=== PATIENT | female | born 1975 | race American Indian/Alaskan Native ===

== ENCOUNTER 2017-05-23 20:18 | Observation (INO) | payer OTHER ==
[2017-05-23 20:22] VITALS: BMI 47.3
--- NOTE | 2017-05-23 20:22 | ED PDOC ---
Arrival/HPI <Jacobo Desir - Last Filed: 05/23/17 21:32> - General Historian: Patient <Kit Florian - Last Filed: 05/26/17 13:56> - General Time Seen by Provider: 05/23/17 20:19 - History of Present Illness Narrative History of Present Illness (Text): 05/23/17 20:21 41 y/o, female, pmh including chronic lumbar radiculapathy, nkda, c/o rt. sided flank/chest pain that has been and off for the past 4 days with no fall or trauma. Pt. was seen at another ER which she bring the copy of the CT abdomen and pelvis result show no acute findings except for hepatic steatosis, discharged home with flexeril, stated that she still has pain. Pt. has no nausea or vomiting, no fever or chills, no chest pain or shortness of breath, no night sweat, no rash, no urinary symptoms, no other medical or psychological complaints. (Kit Florian) Past Medical History - Provider Review Nursing Documentation Reviewed: Yes - Infectious Disease Hx of Infectious Diseases: None - Tetanus Immunization Tetanus Immunization: Unknown - Past Medical History Past Medical History: No Previous - Cardiac Hx Cardiac Disorders: Yes Hx Hypertension: Yes - Pulmonary Hx Respiratory Disorders: Yes Hx Pneumonia: Yes (10-24-15) - Neurological Hx Neurological Disorder: No - HEENT Hx HEENT Disorder: No - Renal Hx Renal Disorder: No - Endocrine/Metabolic Hx Endocrine Disorders: Yes Hx Diabetes Mellitus Type 2: Yes - Hematological/Oncological Hx Blood Disorders: No - Integumentary Hx Dermatological Disorder: No - Musculoskeletal/Rheumatological Hx Musculoskeletal Disorders: Yes Hx Back Pain: Yes Hx Falls: No - Gastrointestinal Hx Gastrointestinal Disorders: No - Genitourinary/Gynecological Hx Genitourinary Disorders: Yes ( X2) Other/Comment: PCOS - Psychiatric Hx Depression: No Hx Emotional Abuse: No Hx Physical Abuse: No Hx Substance Use: No - Surgical History Hx Tonsillectomy: Yes Other/Comment: "ear nose and throat" - Anesthesia Hx Anesthesia: Yes Hx Anesthesia Reactions: No - Suicidal Assessment Feels Threatened In Home Enviroment: No <Kit Florian - Last Filed: 05/26/17 13:56> Family/Social History - Physician Review Nursing Documentation Reviewed: Yes Family/Social History: Unknown Family HX Smoking Status: Current Some Days Smoker Hx Alcohol Use: Yes Hx Substance Use: No Hx Substance Use Treatment: No <FlorianKit Jackeline - Last Filed: 05/26/17 13:56> Allergies/Home Meds <Jacobo Desir - Last Filed: 05/23/17 21:32> <Kit Florian Jackeline - Last Filed: 05/26/17 13:56> Allergies/Adverse Reactions: Allergies No Known Allergies Allergy (Verified 06/22/16 21:40) Home Medications: Home Meds Medication Instructions Recorded Confirmed Lisinopril/Hydrochlorothiazide 20 mg PO DAILY 11/19/15 05/23/17 [Lisinopril-Hctz 20-25 mg Tab] Hydrochlorothiazide 25 mg PO DAILY 05/11/16 05/23/17 Review of Systems - Review of Systems Constitutional: absent: Fatigue, Fevers Eyes: absent: Vision Changes ENT: absent: Hearing Changes Respiratory: absent: SOB, Cough Cardiovascular: absent: Chest Pain Gastrointestinal: Abdominal Pain. absent: Nausea, Vomiting Musculoskeletal: Back Pain (rt. flank). absent: Arthralgias, Neck Pain, Joint Swelling, Myalgias Skin: absent: Rash, Pruritis Neurological: absent: Headache, Dizziness <Kit Florian Jackeline - Last Filed: 05/26/17 13:56> Physical Exam Vital Signs Reviewed: Yes Temperature: Afebrile Blood Pressure: Normal Pulse: Regular Respiratory Rate: Normal Appearance: Positive for: Well-Appearing, Non-Toxic Pain Distress: Severe Mental Status: Positive for: Alert and Oriented X 3 - Systems Exam Head: Present: Atraumatic, Normocephalic Pupils: Present: PERRL Extroacular Muscles: Present: EOMI Conjunctiva: Present: Normal Mouth: Present: Moist Mucous Membranes Neck: Present: Normal Range of Motion Respiratory/Chest: Present: Clear to Auscultation, Good Air Exchange. No: Respiratory Distress, Accessory Muscle Use Cardiovascular: Present: Regular Rate and Rhythm, Normal S1, S2. No: Murmurs Abdomen: Present: Tenderness (epigastric/RUQ), Normal Bowel Sounds. No: Distention, Peritoneal Signs, Rebound, Guarding Back: Present: Normal Inspection. No: CVA Tenderness, Midline Tenderness Upper Extremity: Present: Normal Inspection. No: Cyanosis, Edema Lower Extremity: Present: Normal Inspection. No: Edema Neurological: Present: GCS=15, Speech Normal, Motor Func Grossly Intact, Gait Normal, Memory Normal Skin: Present: Warm, Dry, Normal Color. No: Rashes Psychiatric: Present: Alert, Oriented x 3, Normal Insight, Normal Concentration <Kit Florian - Last Filed: 05/26/17 13:56> Vital Signs Temp Pulse Resp BP Pulse Ox 05/24/17 01:32 67 19 126/79 100 05/24/17 00:00 68 19 135/82 99 05/23/17 22:19 72 18 144/76 99 05/23/17 20:19 97.9 F 68 18 141/86 98 Medical Decision Making <Jacobo Desir - Last Filed: 05/23/17 21:32> - Lab Interpretations I have reviewed the lab results: Yes Interpretation: No clinic. lab abnormalty - RAD Interpretation Medical Collections Specialist: Radiologist <Kit Florian - Last Filed: 05/26/17 13:56> ED Course and Treatment: 05/23/17 20:34 -labs/ua -gallbladder sonogram -cxr -IVF/pepcid/valium/toradol -observe and reassess 05/24/17 00:25 -Labs are non-significant except mild elevation of d-dimer. -UA show no UTI -Urine hcg negative -Gallbladder sonogram show no acute findings. -Chest xray show edema vs. nonspecific findings -CTA: There is no central PE. Patchy consolidations are visualized within both lower lobes as well as the right middle lobe and left upper lobe. These findings are consistent with atelectatic change, although infiltrate cannot be excluded. Patchy nonspecific groundglass density is also identified diffusely within the lungs. -Pt. feels limited relief and still has pain -IV rocephine and azithromycin ordered. -Discussed with Dr. Desir and suggest observation over night. 05/24/17 00:37 -I discussed the case/labs/radiology results with Dr. Angel, agreed that the patient need observatio over night due to the pain is still there with bilateral consolidation findings. (Kit Florian) - Lab Interpretations Microbiology Results: Microbiology Results 05/24/17 00:40 Blood-Venous Blood Culture - Preliminary NO GROWTH AFTER 48 HOURS 05/23/17 20:20 Blood-Venous Blood Culture - Preliminary NO GROWTH AFTER 48 HOURS Lab Results: 05/23/17 21:05 05/23/17 21:05 Lab Results 05/23/17 21:05: D-Dimer, Quantitative 0.52 H 05/23/17 21:05: Sodium 140, Potassium 3.5 L, Chloride 101, Carbon Dioxide 29, Anion Gap 14, BUN 17, Creatinine 0.9, Est GFR ( Amer) > 60, Est GFR (Non- Af Amer) > 60, Random Glucose 114 H, Calcium 9.4, Total Bilirubin 0.3, AST 27, ALT 28, Alkaline Phosphatase 55, Total Protein 7.3, Albumin 4.2, Globulin 3.2, Albumin/Globulin Ratio 1.3 05/23/17 21:05: Urine Color Yellow, Urine Appearance Clear, Urine pH 7.0, Ur Specific [place] 1.020, Urine Protein 30 H, Urine Glucose (UA) Negative, Urine Ketones Negative, Urine Blood Negative, Urine Nitrate Negative, Urine Bilirubin Negative, Urine Urobilinogen 0.2, Ur Leukocyte Esterase Negative, Urine RBC 1 - 3, Urine WBC 1 - 3, Ur Epithelial Cells 3 - 4, Urine Bacteria Small 05/23/17 21:05: WBC 8.4 D, RBC 4.76, Hgb 13.7, Hct 41.4, MCV 87.0, MCH 28.8, MCHC 33.1, RDW 13.6, Plt Count 235, MPV 10.8, Gran % 63.6, Lymph % (Auto) 28.8, [place] % (Auto) 5.7, Eos % (Auto) 1.8, Baso % (Auto) 0.1, Gran # 5.36, Lymph # 2.4 , [place] # 0.5, Eos # 0.2, Baso # 0.01 - RAD Interpretation Radiology Orders: 05/23/17 20:29 CHEST PORTABLE [RAD] Stat GALL BLADDER [US] Stat 05/23/17 23:01 ANGIO CHEST PE PROTOCOL [CT] Stat 05/23/17 20:29 CHEST PORTABLE [RAD] Stat GALL BLADDER [US] Stat FINDINGS: Liver: Diffuse heterogenous appearance of the liver suggestive of fatty infiltration. The liver is significantly enlarged. Other infiltrative process can't be excluded. No intrahepatic bile duct dilation. Gallbladder: No gallstones. Common bile duct: Unremarkable as visualized. No stones. No dilation. Pancreas: Pancreas evaluation is limited. Right kidney: No stones. No hydronephrosis. IMPRESSION: No acute findings. Thank you for allowing us to participate in the care of your patient. Dictated and Authenticated by: Selni Barron MD 05/23/2017 10:00 PM Eastern Time ([place] & [place]) Chest xray: CTA: FINDINGS: Pulmonary arteries: There is no acute central pulmonary embolism. Evaluation of the peripheral pulmonary arteries for pulmonary embolism is suboptimal due to artifact. Aorta: No acute findings. No thoracic aortic aneurysm. Lungs: Patchy consolidations are visualized within both lower lobes as well as the right middle lobe and left upper lobe. These findings are consistent with atelectatic change, although infiltrate cannot be excluded. Patchy nonspecific groundglass density is also identified diffusely within the lungs. Pleural space: No significant effusion. No pneumothorax. SACHA HOGAN | Preliminary Radiology Report POOL SERVICER (QA) DISCREPANCY? If there is a discrepancy between the preliminary and final interpretation, please notify [facility] via [email or web address]. If you do not have access to our QA portal, call our QA team at [phone] CONFIDENTIALITY STATEMENT This report is intended only for the use of the referring physician, and only in accordance with law, If you received this in error, call [phone] Page 2 of 2 Heart: There is cardiomegaly. Fluid is visualized within the superior pericardial recesses. Bones/joints: Hypertrophic degenerative changes are noted within the spine. Lymph nodes: A few mildly enlarged right paratracheal mediastinal lymph nodes are identified, nonspecific as to etiology. Liver: There is hypodense fatty infiltration of the liver. The liver is prominent in size. Spleen: There is mild splenomegaly. The spleen measures 12.4 cm in length. Intraperitoneal space: No free air is visualized within the upper abdomen. Upper abdomen: There is elevation of the right hemidiaphragm. IMPRESSION: 1. There is no acute central pulmonary embolism. Evaluation of the peripheral pulmonary arteries for pulmonary embolism is suboptimal due to artifact. 2. Patchy consolidations are visualized within both lower lobes as well as the right middle lobe and left upper lobe. These findings are consistent with atelectatic change, although infiltrate cannot be excluded. Patchy nonspecific groundglass density is also identified diffusely within the lungs. 3. There is cardiomegaly. 4. A few mildly enlarged right paratracheal mediastinal lymph nodes are identified, nonspecific as to etiology. 5. There is hypodense fatty infiltration of the liver. 6. There is mild splenomegaly. 7. Additional CT findings described above. Thank you for allowing us to participate in the care of your patient. Dictated and Authenticated by: Deshawn Hurtado MD 05/24/2017 12:16 AM Eastern Time ([place] & [place]) (Kit Florian) - Medication Orders Current Medication Orders: Discontinued Medications Acetaminophen (Tylenol 325mg Tab) 975 mg PO STAT STA Stop: 05/24/17 03:54 Last Admin: 05/24/17 04:05 Dose: 975 mg Re-Assess: MAR Pain/Vitals Document 05/24/17 05:05 [facility] (Rec: 05/24/17 06:51 [id number]) Pain Reassessment Is This A Pain ReAssessment? Yes Sleep Is patient sleeping during reassessment? Yes Diazepam (Valium) 7.5 mg IVP ONCE ONE PRN Reason: Protocol Stop: 05/23/17 20:32 Last Admin: 05/23/17 21:37 Dose: 7.5 mg Famotidine (Pepcid) 20 mg IVP STAT STA Stop: 05/23/17 20:35 Last Admin: 05/23/17 21:14 Dose: 20 mg Hydrochlorothiazide (Hydrodiuril) 25 mg PO DAILY [facility] Last Admin: 05/25/17 09:15 Dose: 25 mg Sodium Chloride (Sodium Chloride 0.9%) 1,000 mls @ 999 mls/hr IV .Q1H1M STA Stop: 05/23/17 21:31 Last Admin: 05/23/17 21:13 Dose: 999 mls/hr Ceftriaxone Sodium (Rocephin 1 Gram Ivpb) 1 gm in 100 mls @ 200 mls/hr IVPB STAT STA PRN Reason: Protocol Stop: 05/24/17 01:22 Last Admin: 05/24/17 01:09 Dose: 200 mls/hr Azithromycin (Zithromax 500mg In Ns) 500 mg in 250 mls @ 167 mls/hr IVPB STAT STA PRN Reason: Protocol Stop: 05/24/17 02:22 Last Admin: 05/24/17 01:09 Dose: 167 mls/hr Ceftriaxone Sodium (Rocephin 1 Gram Ivpb) 1 gm in 100 mls @ 100 mls/hr IVPB DAILY STEPHANIE PRN Reason: Protocol Last Admin: 05/25/17 09:18 Dose: Azithromycin 250 mg/ Sodium (Chloride) 250 mls @ 167 mls/hr IVPB DAILY STEPHANIE PRN Reason: Protocol Last Admin: 05/25/17 09:18 Dose: Ceftriaxone Sodium (Rocephin 1 Gram Ivpb) 1 gm in 100 mls @ 200 mls/hr IV ONCE STA PRN Reason: Protocol Stop: 05/24/17 21:45 Last Admin: 05/24/17 21:37 Dose: 200 mls/hr Azithromycin 250 mg/ Sodium (Chloride) 250 mls @ 167 mls/hr IVPB STAT STA PRN Reason: Protocol Stop: 05/24/17 22:45 Last Admin: 05/24/17 21:36 Dose: 167 mls/hr Ibuprofen (Motrin Tab) 600 mg PO TID [facility] Last Admin: 05/25/17 09:15 Dose: 600 mg Re-Assess: MAR Pain/Vitals Document 05/25/17 10:15 SD (Rec: 05/25/17 10:22 SD [id number]) Pain Reassessment Is This A Pain ReAssessment? No Sleep Is patient sleeping during reassessment? Yes Iodixanol (Visipaque 320 Mg/Ml 100 Ml) Confirm Administered Dose 100 ml IV .STK- MED ONE Stop: 05/23/17 23:13 Ketorolac Tromethamine (Toradol) 30 mg IVP STAT STA Stop: 05/23/17 20:32 Last Admin: 05/23/17 21:14 Dose: 30 mg Metformin HCl (Glucophage) 1,000 mg PO DAILY STEPHANIE Last Admin: 05/25/17 09:15 Dose: Potassium Chloride (K-Dur 20 Meq Er Tab) 20 meq PO STAT STA Stop: 05/23/17 22:01 Last Admin: 05/23/17 22:19 Dose: 20 meq - PA / [employer] / Resident Statement SASKIA has reviewed & agrees with the documentation as recorded. SASKIA has examined the patient and agrees with the treatment plan. <Jacobo Desir - Last Filed: 05/23/17 21:32> - PA / [employer] / Resident Statement SASKIA has reviewed & agrees with the documentation as recorded. <Kit Florian - Last Filed: 05/26/17 13:56> Disposition/Present on Arrival <Jacobo Desir - Last Filed: 05/23/17 21:32> - Present on Arrival Any Indicators Present on Arrival: No History of DVT/PE: No History of Uncontrolled Diabetes: No Urinary Catheter: No History of Decub. Ulcer: No History Surgical Site Infection Following: None - Disposition Have Diagnosis and Disposition been Completed?: Yes Disposition Time: 00:27 Patient Plan: Observation <Kit Florian - Last Filed: 05/26/17 13:56> - Disposition Diagnosis: Bilateral pneumonia Disposition: HOSPITALIZED Condition: STABLE
[2017-05-23] MEDS ORDERED: diaZEpam 10 mg/2 ml Inj IVP ONE (20:31)
[2017-05-23] MEDS ORDERED: Sodium Chloride 0.9% 1,000 ML IV STA (20:31)
[2017-05-23 21:52] LABS: URINE BILIRUBIN NEGATIVE (NEGATIVE); URINE BLOOD NEGATIVE (NEGATIVE); URINE GLUCOSE (UA) NEGATIVE (NEGATIVE); URINE KETONE NEGATIVE (NEGATIVE); URINE LEUKOCYTE ESTERASE NEGATIVE Leu/uL (NEGATIVE); URINE PROTEIN 30 mg/dL (<30 mg/dL); URINE UROBILINOGEN 0.2 E.U./dL (<1 E.U./dL)
[2017-05-23 21:53] LABS: URINE APPEARANCE CLEAR (CLEAR); URINE COLOR YELLOW (YELLOW)
[2017-05-23 21:54] LABS: BASO # 0.01 K/mm3 (0.0-2.0); BASO % 0.1 % (0.0-3.0); EOS # 0.2 (0.0-0.7); EOS % 1.8 % (1.5-5.0); GRAN # 5.36 (1.4-6.5); GRAN % 63.6 % (50.0-68.0); HEMATOCRIT 41.4 % (36.0-48.0); LYMPH # 2.4 (1.2-3.4); LYMPH % 28.8 % (22.0-35.0); MEAN CORPUSCULAR HEMOGLOBIN 28.8 pg (25.0-35.0); MEAN CORPUSCULAR HGB CONC 33.1 g/dl (31.0-37.0); MEAN PLATELET VOLUME 10.8 fl (7.0-11.0); MONO # 0.5 (0.1-0.6); MONO % 5.7 % (1.0-6.0); RED CELL DISTRIBUTION WIDTH 13.6 % (11.5-14.5); WHITE BLOOD COUNT 8.4 10^3/ul (4.5-11.0)
[2017-05-23 21:59] LABS: ALB/GLOB RATIO 1.3 (1.1-1.8); ALKALINE PHOSPHATASE 55 U/L (38-133); ALT/SGPT 28 U/L (7-56); AST/SGOT 27 U/L (15-39); BILIRUBIN,TOTAL 0.3 mg/dL (0.2-1.3); BLOOD UREA NITROGEN 17 mg/dL (7-21); CALCIUM 9.4 mg/dL (8.4-10.5); CARBON DIOXIDE 29 mmol/L (21-33); CHLORIDE 101 mmol/L (98-107); GFR AFRICAN-AMERICAN > 60; GLUCOSE,RANDOM 114 mg/dL (70-110); POTASSIUM 3.5 mmol/L (3.6-5.0); SODIUM 140 mmol/L (132-148); TOTAL PROTEIN 7.3 g/dL (5.8-8.3)
[2017-05-23] MEDS ORDERED: Potassium Chloride 20 mEq ER Tab PO STA (22:00)
[2017-05-23 22:02] LABS: URINE BACTERIA SMALL (NEG)
--- NOTE | 2017-05-23 22:20 | RAD ---
EXAM: XR Chest, 1 View EXAM DATE/TIME: 05/23/2017 8:29 PM CLINICAL HISTORY: The patient age is 41 years old and is female; Signs and symptoms; Shortness of breath; Additional info: Medical clearance Facility exam id and description: Rad chest p chest portable TECHNIQUE: Frontal view of the chest. COMPARISON: CT - CHEST,ABD,PEL W/IV PO CONTRAST 11/20/2015 8:04:46 PM FINDINGS: Lungs: There is a diffuse increase in interstitial markings, which is nonspecific. Possible etiologies include interstitial edema and atypical infection. Atelectatic change is visualized within the right lower lung zone. There is hazy opacification of the left mid to lower lung zone, and infiltrate cannot be excluded. Pleural space: No pleural effusions. No pneumothorax. Heart: The cardiac silhouette appears enlarged. Mediastinum: Unremarkable. Bones/joints: Hypertrophic degenerative changes are noted within the spine. IMPRESSION: 1. The cardiac silhouette appears enlarged. 2. There is a diffuse increase in interstitial markings, which is nonspecific. Possible etiologies include interstitial edema and atypical infection. 3. Atelectatic change is visualized within the right lower lung zone. There is hazy opacification of the left mid to lower lung zone, and infiltrate cannot be excluded. Clinical correlation and follow-up radiographs are recommended.
[2017-05-23] MEDS ORDERED: Iodixanol 320 MG/ML 100 ML BOTTLE IV ONE (23:12)
[2017-05-24] MEDS ORDERED: Azithromycin 500MG/NS 250ml 500 MG/250 ML BAG IVPB STA (00:53)
[2017-05-24] MEDS ORDERED: cefTRIAXone 1 gm 1 GM/100 ML BAG IVPB STA (00:53)
--- NOTE | 2017-05-24 04:05 | CP.PCM.PN ---
Subjective - Date & Time of Evaluation Date of Evaluation: 05/24/17 Time of Evaluation: 03:52 - Subjective Subjective: Patient was seen at bedside. Complained of pain in right flank area. Pain is mild , not radiating, can't describe quality. No associated symptoms present. ROS:Negative except as mentioned above. Medical record was reviewed. This 41 year old woman was admitted with right flank pain/ bilateral PNA. Has PMH of DM II, HTN, Obesity, PNA, tonsillectomy. Objective - Vital Signs/Intake and Output Vital Signs (last 24 hours): Temp Pulse Resp BP Pulse Ox 97.9 F 67 19 126/79 100 05/23/17 20:19 05/24/17 01:32 05/24/17 01:32 05/24/17 01:32 05/24/17 01:32 - Labs Labs: Most Recent Lab Values WBC 8.4 10^3/ul (4.5-11.0) D 05/23/17 21:05 RBC 4.76 10^6/uL (3.5-6.1) 05/23/17 21:05 Hgb 13.7 g/dL (12.0-16.0) 05/23/17 21:05 Hct 41.4 % (36.0-48.0) 05/23/17 21:05 MCV 87.0 fl (80.0-105.0) 05/23/17 21:05 MCH 28.8 pg (25.0-35.0) 05/23/17 21:05 MCHC 33.1 g/dl (31.0-37.0) 05/23/17 21:05 RDW 13.6 % (11.5-14.5) 05/23/17 21:05 Plt Count 235 10^3/uL (120.0-450.0) 05/23/17 21:05 MPV 10.8 fl (7.0-11.0) 05/23/17 21:05 Gran % 63.6 % (50.0-68.0) 05/23/17 21:05 Lymph % (Auto) 28.8 % (22.0-35.0) 05/23/17 21:05 [place] % (Auto) 5.7 % (1.0-6.0) 05/23/17 21:05 Eos % (Auto) 1.8 % (1.5-5.0) 05/23/17 21:05 Baso % (Auto) 0.1 % (0.0-3.0) 05/23/17 21:05 Gran # 5.36 (1.4-6.5) 05/23/17 21:05 Lymph # 2.4 (1.2-3.4) 05/23/17 21:05 [place] # 0.5 (0.1-0.6) 05/23/17 21:05 Eos # 0.2 (0.0-0.7) 05/23/17 21:05 Baso # 0.01 K/mm3 (0.0-2.0) 05/23/17 21:05 D-Dimer, Quantitative 0.52 mg/L FEU (0-0.50) H 05/23/17 21:05 Sodium 140 mmol/L (132-148) 05/23/17 21:05 Potassium 3.5 mmol/L (3.6-5.0) L 05/23/17 21:05 Chloride 101 mmol/L (98-107) 05/23/17 21:05 Carbon Dioxide 29 mmol/L (21-33) 05/23/17 21:05 Anion Gap 14 (10-20) 05/23/17 21:05 BUN 17 mg/dL (7-21) 05/23/17 21:05 Creatinine 0.9 mg/dL (0.5-1.4) 05/23/17 21:05 Est GFR ( Amer) > 60 05/23/17 21:05 Est GFR (Non-Af Amer) > 60 05/23/17 21:05 Random Glucose 114 mg/dL (70-110) H 05/23/17 21:05 Calcium 9.4 mg/dL (8.4-10.5) 05/23/17 21:05 Total Bilirubin 0.3 mg/dL (0.2-1.3) 05/23/17 21:05 AST 27 U/L (15-39) 05/23/17 21:05 ALT 28 U/L (7-56) 05/23/17 21:05 Alkaline Phosphatase 55 U/L (38-133) 05/23/17 21:05 Total Protein 7.3 g/dL (5.8-8.3) 05/23/17 21:05 Albumin 4.2 g/dL (3.0-4.8) 05/23/17 21:05 Globulin 3.2 gm/dL 05/23/17 21:05 Albumin/Globulin Ratio 1.3 (1.1-1.8) 05/23/17 21:05 Urine Color Yellow (YELLOW) 05/23/17 21:05 Urine Appearance Clear (CLEAR) 05/23/17 21:05 Urine pH 7.0 (4.7-8.0) 05/23/17 21:05 Ur Specific [place] 1.020 (1.005-1.035) 05/23/17 21:05 Urine Protein 30 mg/dL (<30 mg/dL) H 05/23/17 21:05 Urine Glucose (UA) Negative mg/dL (NEGATIVE) 05/23/17 21:05 Urine Ketones Negative mg/dL (NEGATIVE) 05/23/17 21:05 Urine Blood Negative (NEGATIVE) 05/23/17 21:05 Urine Nitrate Negative (NEGATIVE) 05/23/17 21:05 Urine Bilirubin Negative (NEGATIVE) 05/23/17 21:05 Urine Urobilinogen 0.2 E.U./dL (<1 E.U./dL) 05/23/17 21:05 Ur Leukocyte Esterase Negative Daysi/uL (NEGATIVE) 05/23/17 21:05 Urine RBC 1 - 3 /hpf (0-2) 05/23/17 21:05 Urine WBC 1 - 3 /hpf (0-6) 05/23/17 21:05 Ur Epithelial Cells 3 - 4 /hpf (0-5) 05/23/17 21:05 Urine Bacteria Small (NEG) 05/23/17 21:05 - Constitutional Appears: Well, No Acute Distress - Head Exam Head Exam: ATRAUMATIC (O), NORMAL INSPECTION, NORMOCEPHALIC Additional comments: Obese person. - Eye Exam Eye Exam: Normal appearance - ENT Exam ENT Exam: Normal External Ear Exam - Neck Exam Neck Exam: Normal Inspection - Respiratory Exam Respiratory Exam: NORMAL BREATHING PATTERN - Cardiovascular Exam Cardiovascular Exam: absent: JVD - GI/Abdominal Exam GI & Abdominal Exam: Normal Bowel Sounds - Rectal Exam Rectal Exam: Deferred - Exam Additional comments: Deferred. - Extremities Exam Extremities Exam: Normal Inspection - Back Exam Back Exam: NORMAL INSPECTION - Neurological Exam Neurological Exam: Alert, Oriented x3 - Psychiatric Exam Psychiatric exam: Normal Affect, Normal Mood - Skin Skin Exam: Normal Color Assessment and Plan - Assessment and Plan (Free Text) Assessment: Right flank pain. Bilateral pneumonia. Obesity. HTN. DM II. Hx PNA. Hx Tonsillectomy. Plan: Tylenol 975 mg PO x 1. Continue present management.
[2017-05-24 06:06] VITALS: RESP 20
--- NOTE | 2017-05-24 07:57 | CT ---
PROCEDURE: CT Chest with contrast (Pulmonary Angiogram) HISTORY: Elevated D-dimer, right-sided flank pain. COMPARISON: None available. TECHNIQUE: Axial computed tomography images were obtained of the chest in the pulmonary arterial phase of enhancement. Coronal and sagittal reformatted images were created and reviewed. Intravenous contrast dose: 100 mL Visipaque Radiation dose: Total exam DLP = 690.61 mGy-cm. This CT exam was performed using one or more of the following dose reduction techniques: Automated exposure control, adjustment of the mA and/or kV according to patient size, and/or use of iterative reconstruction technique. FINDINGS: PULMONARY ARTERIES: Examination is of suboptimal diagnostic quality for evaluation of pulmonary embolism due to missed bolus. Allowing for this, there are no large filling defects in the central pulmonary arteries. AORTA: The aorta is normal in caliber. No evidence cough aortic aneurysm or dissection. LUNGS: There is multifocal linear atelectasis in both lungs. There is patchy nonspecific ground-glass attenuation in the lungs. No focal consolidation. There are no endobronchial lesions. PLEURAL SPACES: No effusion or pneumothorax. HEART: There is mild cardiomegaly. No pericardial effusion. LYMPH NODES: No pathologic lymphadenopathy. Subcentimeter mediastinal lymph nodes are likely reactive in etiology BONES, CHEST WALL: Within normal limits for the patient's age. No fracture or destructive lesion OTHER FINDINGS: There is diffuse fatty infiltration of the liver. There is mild splenomegaly. IMPRESSION: 1. Suboptimal diagnostic quality for evaluation of pulmonary embolism due to missed bolus. Allowing for this, no large central pulmonary embolism. 2. Multifocal linear subsegmental atelectasis in the lungs. No focal consolidation. 3. Fatty liver and borderline splenomegaly. A preliminary report was provided by [employer].
--- NOTE | 2017-05-24 08:02 | US ---
HISTORY: rt. flank pain COMPARISON: None. TECHNIQUE: Grayscale imaging was performed. FINDINGS: LIVER: Measures 24.3 cm in length. Normal echogenicity of the liver parenchyma. No mass. No intrahepatic bile duct dilatation. GALLBLADDER: No gallstones, wall thickening or pericholecystic fluid. The sonographic Brito's sign is negative. COMMON BILE DUCT: Measures 6.1 mm. Mild dilatation without evidence intraluminal stone or lesion. . PANCREAS: Unremarkable as visualized. No mass. No ductal dilatation. RIGHT KIDNEY: Measures 13.6 cm in length. Normal echogenicity. No calculus, mass, or hydronephrosis. AORTA: No aneurysmal dilatation. IVC: Unremarkable. OTHER FINDINGS: None . IMPRESSION: Moderate hepatomegaly. Diffuse increased echogenicity in the liver may reflect hepatic steatosis however parenchymal infectious/ inflammatory etiologies cannot be entirely excluded. Clinical and laboratory correlation is advised. No cholelithiasis or nephrolithiasis. Mild diffuse dilatation of the common bile duct without evidence of choledocholithiasis.
[2017-05-24 09:19] VITALS: O2SAT 97
--- NOTE | 2017-05-24 11:35 | CARD ---
APPROVED REPORT EKG Measurement Heart [id number] <Conclusion> Normal sinus rhythm Possible Left atrial enlargement Borderline ECG
[2017-05-24 17:19] VITALS: BP 132/82; PULSE 66; TEMP 98
[2017-05-24] MEDS ORDERED: cefTRIAXone 1 gm 1 GM/100 ML BAG IV STA (21:16)
[2017-05-24] MEDS ORDERED: Azithromycin 250 MG in Sodium Chloride 0.9% 250 ML IVPB STA (21:16)
--- NOTE | 2017-05-25 06:11 | HP ---
CHIEF COMPLAINT AND HISTORY OF PRESENT ILLNESS: This is a 41-year-old female, who is coming into the hospital with complaints of pleuritic chest pain. She said that she has been having this chest pain and had gone to [facility] for evaluation. She said that she had a chest x-ray and CAT scan that showed no acute findings except for a fatty liver. The patient had been discharged home, was given Flexeril. She says she continues to have pain. She had a mild cough. No congestion. No headaches or dizziness. No nausea, no vomiting, no abdominal pain. No fever or chills. REVIEW OF SYSTEMS: All the review of symptoms are within normal limits except as mentioned. ALLERGIES: SHE HAS NO KNOWN DRUG ALLERGIES. HOME MEDICATIONS: Glucophage and lisinopril/hydrochlorothiazide. PAST SURGICAL HISTORY: She had hip surgery. PAST MEDICAL HISTORY: Diabetes type 2 and hypertension. SOCIAL HISTORY: She is a former smoker. She denies drinking or drugs. FAMILY HISTORY: Glioblastoma in the father. PHYSICAL EXAMINATION: VITAL SIGNS: She has a temperature of 98, pulse of 66, blood pressure is 132/82, respirations are 20 and O2 saturation is 97%. Height 5 feet 4 inches and weight is 276 pounds. BMI is 47. GENERAL: The patient lying in bed, uncomfortable, and in no acute distress. HEENT: Atraumatic and normocephalic. Anicteric sclerae. Moist mucosa. [place] conjunctivae. No oral lesions. NECK: No JVD, anterior and posterior adenopathy, thyromegaly, or bruits. CARDIOVASCULAR: S1 and S2 regular. No murmur, rubs, or gallop. LUNGS: Clear to auscultation bilaterally. No wheezes, rales, or rhonchi. ABDOMEN: Bowel sounds are positive. Soft, nontender and nondistended. No hepatosplenomegaly. No rebound and no guarding EXTREMITIES: No cyanosis, clubbing, or edema. NEUROLOGIC: No facial asymmetry. Tongue is midline. No uvula deviation. Power is 5/5 upper extremity and lower extremity. Sensation intact in upper extremity and lower extremity. PSYCHIATRIC: She is awake, alert and oriented x3. No anxiety or depression. She has normal affect. GENITOURINARY: No CVA tenderness. VASCULAR: 2+ pulses in the carotid pulses and pedal pulses. SKIN: No erythema or nodules SPINE: Shows normal curvature. EXTREMITIES: No Cyanosis and clubbing, no edema. LABORATORY DATA: White count of 8.4 and hemoglobin is 13.7. The patient has a D-dimer of 0.52. Chemistries showed that potassium is 3.5. The patient has nitrites that are negative, esterase that are negative. The patient's EKG shows heart rate of 70, sinus rhythm and QTc is 444. CT of the chest shows suboptimal diagnostic study, no PE. There is multifocal linear subatelectasis in the lungs. There is a fatty liver. A chest x-ray done shows the cardiac silhouette appears enlarged. There is hazy opacity in the left [id number] lung zones. A gallbladder ultrasound done shows moderate hepatomegaly. No cholelithiasis or nephrolithiasis. ASSESSMENT: 1. Community-acquired pneumonia 2. Diabetes type 2. 3. Hypertension. 4. Obesity with a BMI of 47. 5. Fatty liver. PLAN: The patient is currently comfortable. She is going to continue with her metformin for diabetes. She is on hydrochlorothiazide for hypertension. She has pleuritic chest pain. She has no white count, no fever. CT that may show mild abnormalities. She has been started on antibiotics for community-acquired pneumonia. She has been given ketorolac for pain. I will continue her on ibuprofen. She was given IV fluids, she says she does feel better. She is on a heart-healthy diet. Cayetano Rey MD
[2017-05-25] MEDS ORDERED: Azithromycin 250 MG in Sodium Chloride 0.9% 250 ML IVPB SCH (10:00)
[2017-05-25] MEDS ORDERED: cefTRIAXone 1 gm 1 GM/100 ML BAG IVPB SCH (10:00)
--- NOTE | 2017-05-31 01:53 | DS ---
DATE OF DISCHARGE: 05/25/2017 DISCHARGE DIAGNOSES: 1. Community acquired pneumonia. 2. Leukocytosis. 3. Pleuritic chest pain. 4. Morbid obesity. 5. Hypertension. 6. Diabetes mellitus type 2. HOSPITAL COURSE: Patient was admitted with pleuritic chest pain, CAT scan of the chest was negative for pulmonary embolism. She has community acquired pneumonia treated with IV antibiotic, azithromycin. She has been discharged in stable condition. She was also given Toradol for the chest pain. No pain right now. PHYSICAL EXAMINATION: On discharge: VITAL SIGNS: Temperature 98.7, heart rate 66 per minute, blood pressure 130/82, respiratory rate 18 per minute, oxygen saturation 98% on room air. HEENT: Normal. CHEST: Air entry present and equal bilaterally. No added sounds. CARDIOVASCULAR: S1 and S2 normal. No murmur or gallop. ABDOMEN: Soft, nontender. No hepatosplenomegaly. EXTREMITIES: No edema. Spine nontender. 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 No focal, sensory, or motor deficit. SKIN: Warm, dry and intact. CONDITION ON DISCHARGE: Stable. DISCHARGE DISPOSITION: Home. DISCHARGE INSTRUCTIONS: Azithromycin 500 mg p.o. daily for 5 days, prescription given; Pepcid 20 mg daily; Motrin 400 mg p.o. q. 6 hours as needed for chest pain; metformin 1000 mg p.o. twice a day. Followup with Dr. Koch in one week. Time spent in preparing discharge and coordinating care 45 minutes. Suha Jones MD
== END 2017-05-25 11:52 | disposition home or self-care (01) ==
LOC: ED 20:18 → ERH 05-24 00:46 → 5RSO 05-24 01:47
PROVIDERS: ADMIT Internal Medicine Nephrology; ATTEND Internal Medicine Nephrology
DX: J18.9 Pneumonia, unspecified organism (principal); M54.16 Radiculopathy, lumbar region; E11.9 Type 2 diabetes mellitus without complications; I11.9 Hypertensive heart disease without heart failure; E66.01 Morbid (severe) obesity due to excess calories; Z68.42 Body mass index [BMI] 45.0-49.9, adult; K76.0 Fatty (change of) liver, not elsewhere classified; Z87.01 Personal history of pneumonia (recurrent); Z87.891 Personal history of nicotine dependence; Z80.8 Family history of malignant neoplasm of other organs or systems
CPT/HCPCS: 71010; 71275; 76705; 80053; 81001; 85025; 85378; 87040; 93005; 96361; 96365; 96366; 96367; 96368; 96375; 99285; G0378; J0456; J0696; J1885; J3360; J7040; Q9967

== ENCOUNTER 2017-05-29 16:21 | Emergency (ER) | payer OTHER ==
[2017-05-29 16:22] VITALS: BMI 47.3
[2017-05-29 16:33] VITALS: BP 149/96; PULSE 79; RESP 18; TEMP 98.4; O2SAT 98
--- NOTE | 2017-05-29 17:15 | ED PDOC ---
Arrival/HPI - General Chief Complaint: Back Pain Time Seen by Provider: 05/29/17 17:06 - History of Present Illness Narrative History of Present Illness (Text): 05/29/17 17:10 41yo female with >2 week duration mid-thoracic back pain. Pt denies any chest discomfort or shortness of breath. States she was admitted and treated for PNA recently, had similar symptoms, discharged, but the same pain still persists. No chest pain or STOKES. States pain is reproducible with palpation, non- pleuritic. Past Medical History - Provider Review Nursing Documentation Reviewed: Yes - Infectious Disease Hx of Infectious Diseases: None - Tetanus Immunization Tetanus Immunization: Unknown - Past Medical History Past Medical History: No Previous - Cardiac Hx Cardiac Disorders: Yes Hx Hypertension: Yes - Pulmonary Hx Respiratory Disorders: Yes Hx Pneumonia: Yes - Neurological Hx Neurological Disorder: No - HEENT Hx HEENT Disorder: No - Renal Hx Renal Disorder: No - Endocrine/Metabolic Hx Endocrine Disorders: Yes Hx Diabetes Mellitus Type 2: Yes - Hematological/Oncological Hx Blood Disorders: No - Integumentary Hx Dermatological Disorder: No - Musculoskeletal/Rheumatological Hx Musculoskeletal Disorders: Yes Hx Back Pain: Yes Hx Falls: No - Gastrointestinal Hx Gastrointestinal Disorders: No - Genitourinary/Gynecological Hx Genitourinary Disorders: Yes ( X2) Other/Comment: PCOS - Psychiatric Hx Depression: No Hx Emotional Abuse: No Hx Physical Abuse: No Hx Substance Use: No - Surgical History Hx Tonsillectomy: Yes Other/Comment: "ear nose and throat" - Anesthesia Hx Anesthesia: Yes Hx Anesthesia Reactions: No - Suicidal Assessment Feels Threatened In Home Enviroment: No Family/Social History Family/Social History: Unknown Family HX Smoking Status: Current Some Days Smoker Hx Alcohol Use: Yes Frequency of alcohol use: Socially Hx Substance Use: No Hx Substance Use Treatment: No Allergies/Home Meds Allergies/Adverse Reactions: Allergies No Known Allergies Allergy (Verified 06/22/16 21:40) Home Medications: Home Meds Medication Instructions Recorded Confirmed Lisinopril/Hydrochlorothiazide 20 mg PO DAILY 11/19/15 05/29/17 [Lisinopril-Hctz 20-25 mg Tab] Hydrochlorothiazide 25 mg PO DAILY 05/11/16 05/29/17 Review of Systems - Physician Review All systems were reviewed & negative as marked: Yes Physical Exam - Physical Exam Narrative Physical Exam (Text): 05/29/17 17:16 - Review of Systems Constitutional: Normal. absent: Fatigue, Weight Change, Fevers Eyes: Normal ENT: denies sore throat, denies tristhmus Respiratory: Normal. absent: SOB, Cough, Sputum Cardiovascular: absent: Chest Pain, Palpitations, Syncope Gastrointestinal: Normal. absent: Abdominal Pain, Diarrhea, Nausea, Vomiting Genitourinary: Normal. absent: Dysuria, Frequency, Hematuria Musculoskeletal: back pain. absent: Arthralgias, Neck Pain Skin: no rashes, no erythema Neurological: absent: Focal Weakness Endocrine: Normal Hemo/Lymphatic: Normal Psychiatric: No suicidal or homicidal ideations Physical exam Patient appears age appropriate in no distress, speaking full sentences without difficulty Increased hypertonicity appreciated in the mid-thoracic spine, pain quality reproduced with palpation. No midline tenderness. FROM of pt's cervical, thoracic, lumbar, and sacral regions appreciated, active/passive without any difficulty. Lower extremities with full neurological and vascular intact. Steady gait. - Systems Exam Head: Present: Atraumatic, Normocephalic Pupils: Present: PERRL Extroacular Muscles: Present: EOMI Conjunctiva: Present: Normal Mouth: Present: Moist Mucous Membranes Neck: Present: Normal Range of Motion. No: MIDLINE TENDERNESS, Paraspinal Tenderness Respiratory/Chest: Present: Clear to Auscultation, Good Air Exchange. No: Respiratory Distress, Accessory Muscle Use, Tachypneic Cardiovascular: Present: Regular Rate and Rhythm, Normal S1, S2, Peripheal Pulses Present. No: Murmurs Abdomen: Present: Normal Bowel Sounds. No: Tenderness, Distention, Peritoneal Signs, Rebound, Guarding Back: No: Midline Tenderness Upper Extremity: Present: Normal Inspection. No: Cyanosis, Edema Lower Extremity: Present: Normal Inspection. No: Edema Neurological: Present: GCS=15, Speech Normal, cranial nerves II through XII fully intact with no cerebellar abnormality, neurosensory fully intact. No focal neurological deficits. Skin: Present: Warm, Dry, Normal Color. No: Rashes Lymphatic: Present: OX3, NI, NC Psychiatric: Present: Alert, Oriented x 3, Normal Insight, Normal Concentration Vital Signs Reviewed: Yes Vital Signs Temp Pulse Resp BP Pulse Ox 05/29/17 16:33 98.4 F 79 18 149/96 H 98 Temperature: Afebrile Blood Pressure: Hypertensive Pulse: Regular Respiratory Rate: Normal Appearance: Positive for: Well-Appearing Pain Distress: None Mental Status: Positive for: Alert and Oriented X 3 Medical Decision Making ED Course and Treatment: 05/29/17 17:18 41yo female with persistant reproducibel back pain PERC negative previous records reviewed, pt was recently hospitalized. Had a CT angio chest done, suboptimal contrast study, but no large PE, no consolidation. repeat cxr and pain meds ordered pt for f/u with PMD outpatient 05/29/17 17:[address] Rey in detail, agrees with dc home and outpatient f/u if CXR neg for pna 05/29/17 18:30 CXR with no cardiomegaly, no infiltrates, no effusions. Interpreted by me. pt in no distress, states she feels comfortable being dc'd home with outpatient f/u Pt states she understands to return to the ER right away for new or worsening symptoms or for inability to f/u with PMD or specialist as instructed. Patient states that she fully agrees with and understands discharge instructions. States that she agrees with the plan and disposition. Verbalized and repeated discharge instructions and plan. I have given the patient opportunity to ask any additional questions. - RAD Interpretation Radiology Orders: 05/29/17 17:08 CHEST TWO VIEWS (PA/LAT) [RAD] Stat - Medication Orders Current Medication Orders: Discontinued Medications Ketorolac Tromethamine (Toradol) 30 mg IM STAT STA Stop: 05/29/17 17:09 Last Admin: 05/29/17 18:11 Dose: 30 mg Disposition/Present on Arrival - Present on Arrival Any Indicators Present on Arrival: No History of DVT/PE: No History of Uncontrolled Diabetes: No Urinary Catheter: No History of Decub. Ulcer: No History Surgical Site Infection Following: None - Disposition Have Diagnosis and Disposition been Completed?: Yes Diagnosis: Back pain Disposition: HOME/ ROUTINE Disposition Time: 18:32 Patient Plan: Discharge Condition: GOOD Discharge Instructions (ExitCare): Back Pain (ED) Additional Instructions: PLEASE TAKE OVER THE COUNTER MOTRIN OR TYLENOL FOR PAIN PER PHARMACY INSTRUCTIONS PLEASE RETURN TO THE EMERGENCY DEPARTMENT FOR NEW OR WORSENING SYMPTOMS. RETURN RIGHT AWAY IF YOU CANNOT FOLLOW UP WITH YOUR PRIMARY CARE DOCTOR, CLINIC, OR SPECIALIST IN 1-2 DAYS. Referrals: Cayetano Rey MD [Family Provider] - Follow up with primary Forms: [employer] (Frisian), WORK NOTE
--- NOTE | 2017-05-29 19:56 | RAD ---
HISTORY: back pain COMPARISON: Chest x-ray performed 05/23/17 TECHNIQUE: Chest PA and lateral FINDINGS: Examination limited by habitus. LUNGS: Atelectasis/ infiltrate within the left middle lobe and right middle lobe. Please note that chest x-ray has limited sensitivity for the detection of pulmonary masses. PLEURA: No significant pleural effusion identified. No definite pneumothorax . CARDIOVASCULAR: Borderline cardiomegaly. OSSEOUS STRUCTURES: Degenerative changes. VISUALIZED UPPER ABDOMEN: Unremarkable. OTHER FINDINGS: None. IMPRESSION: Atelectasis/ infiltrate within the left middle lobe and right middle lobe.
== END 2017-05-29 19:00 | disposition home or self-care (01) ==
LOC: ED 16:21
DX: M54.9 Dorsalgia, unspecified (principal)
CPT/HCPCS: 71020; 96372; 99283; J1885

== ENCOUNTER 2017-06-10 10:41 | Emergency (ER) | payer OTHER ==
[2017-06-10 10:48] VITALS: BMI 47.7
[2017-06-10 10:54] VITALS: RESP 18
[2017-06-10] MEDS ORDERED: oxyCODONE 5 mg Immediate Release Tab PO STA (11:57)
--- NOTE | 2017-06-10 12:37 | RAD ---
HISTORY: right rib pain - h/o pna recently on right COMPARISON: 05/29/2017 TECHNIQUE: Chest PA and lateral FINDINGS: LUNGS: No active pulmonary disease. There is some linear atelectasis PLEURA: No significant pleural effusion identified. No pneumothorax apparent. CARDIOVASCULAR: Normal. OSSEOUS STRUCTURES: No significant abnormalities. VISUALIZED UPPER ABDOMEN: Normal. OTHER FINDINGS: None. IMPRESSION: No active disease.
--- NOTE | 2017-06-10 15:14 | ED PDOC ---
Arrival/HPI - General Chief Complaint: Back Pain Time Seen by Provider: 06/10/17 11:25 Historian: Patient - History of Present Illness Narrative History of Present Illness (Text): 06/10/17 11:51 A 41 year old female, whose past medical history includes hypertension, pneumonia, back pain, and diabetes type 2, presents to the emergency department complaining of persistent mid-back pain for 3 weeks. Patient reports she was diagnosed with pneumonia few weeks ago and has completed in taking antibiotics. She mentions seeing pain management 4 days ago and has follow-up appointment in 3 days. Patient denies of any fever, cough, recent trauma, hematuria, or any other complaints. Also, patient mentions taking muscle relaxants a few hours ago. No PMD Time/Duration: < week (3 weeks ago) Symptom Onset: Sudden Symptom Course: Unchanged Past Medical History - Provider Review Nursing Documentation Reviewed: Yes - Infectious Disease Hx of Infectious Diseases: None - Tetanus Immunization Tetanus Immunization: Unknown - Past Medical History Past Medical History: No Previous - Cardiac Hx Cardiac Disorders: Yes Hx Hypertension: Yes - Pulmonary Hx Respiratory Disorders: Yes Hx Pneumonia: Yes - Neurological Hx Neurological Disorder: No - HEENT Hx HEENT Disorder: No - Renal Hx Renal Disorder: No - Endocrine/Metabolic Hx Endocrine Disorders: Yes Hx Diabetes Mellitus Type 2: Yes - Hematological/Oncological Hx Blood Disorders: No - Integumentary Hx Dermatological Disorder: No - Musculoskeletal/Rheumatological Hx Musculoskeletal Disorders: Yes Hx Back Pain: Yes Hx Falls: No - Gastrointestinal Hx Gastrointestinal Disorders: No - Genitourinary/Gynecological Hx Genitourinary Disorders: Yes ( X2) Other/Comment: PCOS - Psychiatric Hx Depression: No Hx Emotional Abuse: No Hx Physical Abuse: No Hx Substance Use: No - Surgical History Hx Tonsillectomy: Yes Other/Comment: "ear nose and throat" - Anesthesia Hx Anesthesia: Yes Hx Anesthesia Reactions: No - Suicidal Assessment Feels Threatened In Home Enviroment: No Family/Social History - Physician Review Nursing Documentation Reviewed: Yes Family/Social History: No Known Family HX Smoking Status: Current Some Days Smoker Hx Alcohol Use: Yes Hx Substance Use: No Hx Substance Use Treatment: No Allergies/Home Meds Allergies/Adverse Reactions: Allergies No Known Allergies Allergy (Verified 06/22/16 21:40) Home Medications: Home Meds Medication Instructions Recorded Confirmed Lisinopril/Hydrochlorothiazide 20 mg PO DAILY 11/19/15 06/10/17 [Lisinopril-Hctz 20-25 mg Tab] Hydrochlorothiazide 25 mg PO DAILY 05/11/16 06/10/17 Review of Systems - Physician Review All systems were reviewed & negative as marked: Yes - Review of Systems Constitutional: absent: Fevers, Other (no recent trauma) Respiratory: absent: Cough Genitourinary Female: absent: Hematuria Musculoskeletal: Back Pain (persistent mid-back pain ) Physical Exam Vital Signs Reviewed: Yes Vital Signs Temp Pulse Resp BP Pulse Ox 06/10/17 15:48 98.8 F 70 18 148/80 100 06/10/17 11:57 79 18 133/79 96 06/10/17 10:42 98.4 F 84 18 135/87 96 Temperature: Afebrile Blood Pressure: Normal Pulse: Regular Respiratory Rate: Normal Appearance: Positive for: Well-Appearing, Non-Toxic, Comfortable Pain Distress: None Mental Status: Positive for: Alert and Oriented X 3 - Systems Exam Head: Present: Atraumatic, Normocephalic Pupils: Present: PERRL Extroacular Muscles: Present: EOMI Conjunctiva: Present: Normal Mouth: Present: Moist Mucous Membranes Neck: Present: Normal Range of Motion Respiratory/Chest: Present: Clear to Auscultation, Good Air Exchange. No: Respiratory Distress, Accessory Muscle Use Cardiovascular: Present: Regular Rate and Rhythm, Normal S1, S2. No: Murmurs Abdomen: Present: Normal Bowel Sounds. No: Tenderness, Distention, Peritoneal Signs Back: Present: Other (thoracic tenderness t5-t6). No: CVA Tenderness Upper Extremity: Present: Normal Inspection. No: Cyanosis, Edema Lower Extremity: Present: Normal Inspection. No: Edema Neurological: Present: GCS=15, CN II-XII Intact, Speech Normal Skin: Present: Warm, Dry, Normal Color. No: Rashes Psychiatric: Present: Alert, Oriented x 3, Normal Insight, Normal Concentration Medical Decision Making ED Course and Treatment: 06/10/17 11:57 Impression: 41 year old female with persistent mid-back pain. Physical exam shows thoracic back tenderness along t5-t6 and no CVA tenderness. Plan: -- Chest X-ray -- Zofran -- Oxycodone -- Reassess and disposition Prior Visits: Notes and results from previous visits were reviewed. On 05/29/2017 patient came in complaining of mid-thoracic back pain. Patient was discharged home. Progress Notes: 06/10/2017 12:35 Chest X-ray FINDINGS: LUNGS: No active pulmonary disease. There is some linear atelectasis PLEURA: No significant pleural effusion identified. No pneumothorax apparent. CARDIOVASCULAR: Normal. OSSEOUS STRUCTURES: No significant abnormalities. VISUALIZED UPPER ABDOMEN: Normal. OTHER FINDINGS: None. IMPRESSION: No active disease. Dictator : Nelson Pierre MD Past CT and X-ray exams from the past 4 weeks reviewed by me. On re-evaluation, patient feels better after taking medications and is in no acute distress. I have discussed the results and plan with the patient, who expresses understanding. Patient in agreement with plan to be discharged home. Patient is stable for discharge. Patient was instructed to follow up with physician or return if symptoms worsen or new concerning symptoms arise. - RAD Interpretation Radiology Orders: 06/10/17 11:56 CHEST TWO VIEWS (PA/LAT) [RAD] Stat - Medication Orders Current Medication Orders: Discontinued Medications Ondansetron HCl (Zofran Odt) 4 mg PO STAT STA Stop: 06/10/17 11:58 Last Admin: 06/10/17 12:28 Dose: 4 mg Oxycodone HCl (Oxycodone Immediate Release Tab) 5 mg PO STAT STA Stop: 06/10/17 11:58 Last Admin: 06/10/17 12:27 Dose: 5 mg Re-Assess: [place] Pain Assessment Document 06/10/17 13:27 AB (Rec: 06/10/17 13:44 AB [id number]) Pain Reassessment Is this a pain reassessment? Yes Sleep Is patient sleeping during reassessment? No Presence of Pain Presence of Pain No Pain Scale Used Pain Scale Used Numeric Location Pain Location Body Site Back - Scribe Statement The provider has reviewed the documentation as recorded by the Antonio Gautam Provider Scribe Attestation: All medical record entries made by the Scribe were at my direction and personally dictated by me. I have reviewed the chart and agree that the record accurately reflects my personal performance of the history, physical exam, medical decision making, and the department course for this patient. I have also personally directed, reviewed, and agree with the discharge instructions and disposition. Disposition/Present on Arrival - Present on Arrival Any Indicators Present on Arrival: No History of DVT/PE: No History of Uncontrolled Diabetes: No Urinary Catheter: No History of Decub. Ulcer: No History Surgical Site Infection Following: None - Disposition Have Diagnosis and Disposition been Completed?: Yes Diagnosis: Back pain Disposition: HOME/ ROUTINE Disposition Time: 12:50 Condition: IMPROVED Discharge Instructions (ExitCare): Back Pain (ED) Additional Instructions: Thank you for letting us take care of you today. Your provider was Dr. Fernandez. You were treated for back pain. The emergency medical care you received today was directed at your acute symptoms. If you were prescribed any medication, please fill it and take as directed. It may take several days for your symptoms to resolve. Return to the Emergency Department if your symptoms worsen, do not improve, or if you have any other problems. Please contact your doctor or call one of the physicians/clinics you have been referred to that are listed on the Patient Visit Information form that is included in your discharge packet. Bring any paperwork you were given at discharge with you along with any medications you are taking to your follow up visit. Our treatment cannot replace ongoing medical care by a primary care provider (PCP) outside of the emergency department. Thank you for allowing the [facility] team to be part of your care today. Follow up with your pain management doctor in 2-3 days as scheduled. Prescriptions: oxyCODONE [oxyCODONE Immediate Release Tab] 5 mg PO Q6 PRN #10 tab PRN Reason: Pain, Severe (8-10) Referrals: PCP,NO [Primary Care Provider] - Follow up with primary Forms: [employer] (Ukrainian)
[2017-06-10 15:49] VITALS: BP 148/80; PULSE 70; TEMP 98.8; O2SAT 100
== END 2017-06-10 15:20 | disposition home or self-care (01) ==
LOC: ED 10:41
DX: M54.6 Pain in thoracic spine (principal); I10 Essential (primary) hypertension; E11.9 Type 2 diabetes mellitus without complications